=== PATIENT | female | born 1960 | race Caucasian/White ===

== ENCOUNTER 2016-07-31 21:20 | Emergency (ER) | payer OTHER ==
[~2016-07-31] VITALS: Ht 165.1 cm; Wt 63.6 kg
[2016-07-31 21:31] VITALS: TEMP 96.9
[2016-07-31] MEDS ORDERED: PERCOCET 325 MG1 TA2 PO (22:49)
[2016-07-31 22:57] VITALS: BP 137/87; PULSE 90
== END 2016-07-31 23:18 | disposition home or self-care (01) ==
LOC: COL.ER 21:20
DX: S82.852A Displaced trimalleolar fracture of left lower leg, initial encounter for closed fracture (principal); X50.1XXA Overexertion from prolonged static or awkward postures, initial encounter
CPT/HCPCS: J1170; J2704; J3010; J7030